=== PATIENT | female | born 1955 | race Caucasian/White ===

== ENCOUNTER 2022-09-02 23:27 | Emergency (ER) | payer MEDICARE, OTHER ==
[~2022-09-02] VITALS: Ht 160 cm; Wt 68.0 kg
--- NOTE | 2022-09-03 00:35 | NUR ---
Dr. Cortez at bedside for MSE.
[2022-09-03] MEDS ORDERED: ONDANSETRON ODT 4 MG TAB.RAPDIS ONE (00:48)
[2022-09-03] MEDS ORDERED: HYDROMORPHONE 1 MG/1 ML DISP.SYRIN ONE (00:48)
[2022-09-03] MEDS ORDERED: LIDOCAINE 1%-EPI 1:100,000 20 ML VIAL ONE (00:53)
[2022-09-03] MEDS ORDERED: SODIUM BICARBONATE 4.2 % (NEUT) 5 ML VIAL ONE (00:54)
[2022-09-03] MEDS ORDERED: OXYC-128 PO (00:56)
[2022-09-03] MEDS ORDERED: ONDA4TAB5 PO (00:56)
[2022-09-03] MEDS ORDERED: PENICILLIN V POTASSIUM 500 MG TABLET ONE (00:58)
[2022-09-03] MEDS ORDERED: HYDROMORPHONE 1 MG/1 ML DISP.SYRIN IM ONE (01:00)
[2022-09-03] MEDS ORDERED: ONDANSETRON ODT 4 MG TAB.RAPDIS SL ONE (01:00)
[2022-09-03] MEDS ORDERED: SODIUM BICARBONATE 4.2 % (NEUT) 5 ML VIAL TP ONE (01:00)
[2022-09-03] MEDS ORDERED: LIDOCAINE 1%-EPI 1:100,000 20 ML VIAL IJ ONE (01:00)
[2022-09-03] MEDS ORDERED: PENICILLIN V POTASSIUM 500 MG TABLET PO ONE (01:00)
[2022-09-03] MEDS ORDERED: LET TOPICAL SOLUTION 8 ML UDC ONE (02:28)
[2022-09-03] MEDS ORDERED: LET TOPICAL SOLUTION 8 ML UDC TP ONE (02:30)
[2022-09-03] MEDS ORDERED: PENI500T PO (03:23)
[2022-09-03] MEDS ORDERED: HYDROMORPHONE HCL 2 MG TABLET ONE (03:35)
--- NOTE | 2022-09-03 03:42 | NUR ---
Patient discharged to home in stable condition. Written and verbal after care instructions given. Patient verbalizes understanding of instructions. Stressed follow up or return to ER for worsening s/s. Patient out of ER with steady gait, no acute signs of distress, VSS, all belongings taken, provided with CD of xray images.
[2022-09-03 03:43] VITALS: BP 143/88
[2022-09-03] MEDS ORDERED: HYDROMORPHONE HCL 2 MG TABLET PO ONE (03:45)
[2022-09-03] MEDS ORDERED: TRAM50TA2 PO (10:51)
== END 2022-09-03 03:43 | disposition home or self-care (01) ==
LOC: ER 23:35
DX: S42.211A Unspecified displaced fracture of surgical neck of right humerus, initial encounter for closed fracture (principal); S01.511A Laceration without foreign body of lip, initial encounter; Z90.89 Acquired absence of other organs; Z79.2 Long term (current) use of antibiotics; Z79.899 Other long term (current) drug therapy; W01.0XXA Fall on same level from slipping, tripping and stumbling without subsequent striking against object, initial encounter; Y93.89 Activity, other specified; Y92.89 Other specified places as the place of occurrence of the external cause; Y99.8 Other external cause status
CPT/HCPCS: 99284; 12011; 73200; 73030; 73060; 73080; 73090; 96372; J3490 ×2; J1170; A4663; Q0162